=== PATIENT | male | born 1985 | race Caucasian/White ===

== ENCOUNTER 2016-08-08 11:35 | Emergency (ER) | payer SELFPAY ==
[~2016-08-08] VITALS: Ht 177.8 cm; Wt 80.0 kg
[2016-08-08 11:36] VITALS: BP 134/86; PULSE 98; RESP 15; TEMP 98.3; O2SAT 95
[2016-08-08] MEDS ORDERED: CLIN1CAP5 PO (11:48)
[2016-08-08] MEDS ORDERED: NAPR500T PO (11:48)
--- NOTE | 2016-08-08 11:49 | PD ---
HPI Chief Complaint: Oral / Dental Pain or Problem Time Seen by Provider: 11:48 Travel History International Travel<30 days: No Contact w/Intl Traveler<30days: No Traveled to known affect area: No History of Present Illness HPI 31-year-old male presents to the emergency department for evaluation of left lower dental pain and facial swelling for 2 days. Patient states that his wisdom teeth have been coming on for the past year and his dentist told him that he may occasionally have pain and swelling at the site. States that he does occasionally get pain and swelling in his lower posterior molars but that 2 days ago he had worsening pain and swelling in the left lower posterior molar. States that he has a lump along his left lower jaw that feels like an abscess. States that he was unable to see his dentist today because of the weekend and he was hoping that he can get some antibiotics. He denies any fever , chills, nausea, vomiting. Pain is aggravated with talking and eating. Alleviated briefly with Orajel. No other complaints. PFSH Past Medical History Medical History: Denies Significant Hx Social History Alcohol Use: No Tobacco Use: No Substance Use: No Allergies-Medications (Allergen,Severity, Reaction): Coded Allergies: No Known Allergies (Unverified , 08/08/16) Reported Meds & Prescriptions Reported Meds & Active Scripts Active Naproxen 500 Mg Tab 500 Mg PO BID 7 Days Clindamycin (Clindamycin HCl) 150 Mg Cap 300 Mg PO Q6H 10 Days Review of Systems Except as stated in HPI: all other systems reviewed are Neg Physical Exam Narrative GENERAL: Well-nourished and well-developed pleasant male patient in no acute distress who is nontoxic appearing. SKIN: Warm and dry. HEAD: Normocephalic and atraumatic. There is slight swelling along the left mandible with tenderness to palpation. EYES: No injection, drainage, or hyphema noted. PERRLA. EOMI. ENT: No nasal drainage noted. Oropharynx is clear. DENTAL: Left lower posterior molar with swelling gingiva and tenderness to palpation. No discharge or drainage. NECK: Supple and the trachea is midline. No lymphadenopathy is noted throughout the cervical chains. CARDIOVASCULAR: Regular rate and rhythm. RESPIRATORY: Breath sounds are equal bilaterally with no accessory muscle use, wheezing, rhonchi, or crackles. MUSCULOSKELETAL: No obvious deformities, swelling, cyanosis, or ecchymosis is present throughout the upper and lower extremities. NEUROLOGICAL: Awake, alert, and oriented. Normal speech and gait. Cranial nerves are grossly intact. Data Data Last Documented VS Vital Signs Date Time Temp Pulse Resp B/P Pulse Ox O2 Delivery O2 Flow Rate FiO2 08/08/16 11:36 98.3 98 15 134/86 95 MDM Medical Decision Making Medical Screen Exam Complete: Yes Emergency Medical Condition: Yes Differential Diagnosis Dental abscess versus dental caries versus gingivitis Narrative Course 31-year-old male presents to the emergency department for evaluation of left lower dental pain and facial swelling. Patient is afebrile, vital signs are stable. The patient has a dental abscess. We'll treat the patient with clindamycin and NSAIDs. He is instructed to follow-up with his dentist as an outpatient. Patient verbalizes understanding and agreement with treatment plan. Diagnosis Primary Impression: Dental abscess Referrals: Dentist Patient Instructions: Dental Abscess (ED), General Instructions Additional Instructions: Take medications as prescribed with food and a full glass of water. Follow-up with your dentist. Return to the ED for any acute worsening of symptoms. Med/Other Pt SpecificInfo: Prescription(s) given Scripts Naproxen 500 Mg [id number] Mg PO BID 7 Days Ref 0 Prov:Jarrod Magallanes MD 08/08/16 Clindamycin 150 Mg [id number] Mg PO Q6H 10 Days Ref 0 Prov:Jarrod Magallanes MD 08/08/16 Disposition: 01 DISCHARGE HOME Condition: Stable Jessica Saunders Aug 08, 2016 11:49
== END 2016-08-08 12:10 | disposition home or self-care (01) ==
LOC: NEPC 11:35
DX: K04.7 Periapical abscess without sinus (principal)
CPT/HCPCS: 99282